=== PATIENT | male | born 1990 | race Caucasian/White ===

== ENCOUNTER 2017-03-06 06:40 | Day surgery (SDC) | payer BC ==
[2017-03-06] MEDS ORDERED: Sodium Chloride 0.9% 10 ML Syringe FLUSH PRN (06:45)
[2017-03-06] MEDS: Lactated Ringers 1,000 ML IV SCH ×3 (07:24→19:33)
[2017-03-06] MEDS ORDERED: Succinylcholine/Normal Saline 200 MG/10 ML Syringe IV ONE (08:00)
[2017-03-06] MEDS ORDERED: Famotidine/Normal Saline 20 MG/50 ML BAG IV ONE (08:00)
[2017-03-06] MEDS ORDERED: Sugammadex Sodium 200 MG/2 ML VIAL IV ONE (08:00)
[2017-03-06] MEDS ORDERED: cefOXitin 2 GM Vial IV ONE (08:00)
[2017-03-06] MEDS ORDERED: Dexamethasone 4 MG/ML 5 ML MDV IVPUSH ONE (08:00)
[2017-03-06] MEDS ORDERED: HYDROmorphone 2 MG/ML SDV IV ONE (08:00)
[2017-03-06] MEDS ORDERED: Citric Acid/Sodium Citrate Solution 30 ML Cup PO ONE (08:00)
[2017-03-06] MEDS ORDERED: Ketorolac 30 MG/ML SDV IVPUSH ONE (08:00)
[2017-03-06] MEDS ORDERED: Scopolamine 1.5 MG Transdermal Patch TOP ONE (08:00)
[2017-03-06] MEDS ORDERED: Ondansetron 4 MG/2 ML SDV IVPUSH ONE (08:00)
[2017-03-06] MEDS ORDERED: Propofol 200 MG/20 ML SDV IV ONE (08:00)
[2017-03-06] MEDS ORDERED: Midazolam 1 MG/ML 2 ML SDV IV ONE (08:00)
[2017-03-06] MEDS ORDERED: cefOXitin 2 GM in Sodium Chloride 0.9% 100 ML IV ONE (08:00)
[2017-03-06] MEDS ORDERED: Lactated Ringers 1,000 ML IV ONE (08:00)
[2017-03-06] MEDS ORDERED: Rocuronium 100 MG/10 ML MDV IV ONE (08:00)
[2017-03-06] MEDS ORDERED: fentaNYL 100 MCG/2 ML SDV IV ONE (08:00)
[2017-03-06] MEDS ORDERED: diphenhydrAMINE 50 MG/ML SDV IV ONE (08:00)
--- NOTE | 2017-03-06 08:17 | PCM.HPR ---
H & P Addendum review - H & P Addendum Review Date of Original H & P: 02/13/17 Date Reviewed: 03/06/17 Time Reviewed: 08:00 Patient was Examined: No Changes
--- NOTE | 2017-03-06 10:35 | PCM.OPNOTE ---
- General Post-Op/Procedure Note Date of Surgery/Procedure: 03/06/17 Operative Procedure(s): Lap Ann Marie Pre Op Diagnosis: GERD Post-Op Diagnosis: Same Anesthesia Technique: General ET Tube Primary Surgeon: Clay Benavidez Anesthesia Provider: Jeff Berry EBL in mLs: 10 Complications: None Condition: Good
[2017-03-06] MEDS ORDERED: Albuterol 0.083% 2.5 MG/3 ML Neb Soln NEB PRN (10:44)
[2017-03-06] MEDS ORDERED: HYDROmorphone 2 MG/ML SDV IV PRN (10:44)
[2017-03-06] MEDS ORDERED: fentaNYL 100 MCG/2 ML SDV IVPUSH PRN (10:44)
[2017-03-06] MEDS ORDERED: Naloxone 0.4 MG/ML SDV IVPUSH PRN (10:44)
[2017-03-06] MEDS ORDERED: HYDROmorphone 2 MG/ML SDV IVPUSH PRN (10:44)
[2017-03-06] MEDS ORDERED: Ondansetron 4 MG/2 ML SDV IVPUSH PRN (10:44)
[2017-03-06] MEDS ORDERED: Promethazine 25 MG/ML SDV IM PRN (10:44)
[2017-03-06] MEDS ORDERED: Lactated Ringers 1,000 ML IV SCH (10:45)
[2017-03-06] MEDS: Morphine 2 MG/ML Syringe IVPUSH PRN ×5 (11:01→18:23)
[2017-03-06] MEDS ORDERED: Nicotine 21 MG/24 Hr Patch TRDERM SCH (12:00)
[2017-03-06] MEDS ORDERED: HYDROmorphone 2 MG/ML SDV IVPUSH ONE (12:36)
[2017-03-06] MEDS ORDERED: Ketorolac 30 MG/ML SDV IVPUSH PRN (17:30)
--- NOTE | 2017-03-06 17:49 | OR ---
DATE OF OPERATION: 03/06/2017 SURGEON: Clay Benavidez MD PREOPERATIVE DIAGNOSIS: Gastroesophageal reflux disease. POSTOPERATIVE DIAGNOSIS: Gastroesophageal reflux disease. PROCEDURE PERFORMED: Laparoscopic Ann Marie Fundoplication. ANESTHESIA: General. YACHT HAND: Dave Quintana MD. DESCRIPTION OF PROCEDURE: The patient was brought to the operating room, where general endotracheal anesthesia was administered. He was placed in stirrups after Flowtrons were applied. The abdomen was clipped, prepped with ChloraPrep, and draped sterilely. An infraumbilical incision was made and extended into the peritoneal cavity without difficulty. The Iris cannulator was introduced and pneumoperitoneum obtained. The patient was placed in reverse Trendelenburg position. Two 5-mm epigastric working ports were placed. Two additional 5-mm ports were placed in the left and right lateral clavicular line. The liver retractor was placed through the right lateral port site and the left lobe of the liver suspended. The hepatogastric ligament was identified and divided using the LigaSure. Dissection was continued along between the right pari and esophagus easily these 2 structures and continuing the dissection posteriorly. Both the right and left pari were identified. Vagus nerve was kept posteriorly and protected from injury. Dissection then continued along the anterior esophagus onto the left side attachments to the fundus and the splenic capsule. The fundus was then cleared by the omentum using the LigaSure. This was continued posteriorly until the remaining attachments to the spleen were with the LigaSure and the esophagus the rest of the way from the left pari. The angled grasper was then placed behind the esophagus and brought out through the left side. A half- inch [place] drain was grasped and used to retract the esophagus anteriorly such that the remaining connective tissue was divided with the LigaSure and allowing an ample opening to pull the fundus through. Some further work was done with the fundus further inferiorly and posteriorly to allow mobility for a tension- free wrap. The bougie was inflated to 56-[place]. The right and left pari were identified and felt 2 reapproximating sutures would be appropriate. The bougie was then deflated, and 2-0 polyester used to reapproximate the right and left pari and secured with a tie-knot. The angled grasper was then brought behind the esophagus and the fundus grasped and brought to the right side. There appeared to be ample mobile fundus to allow a floppy wrap. The bougie was re-inflated, and the wrap started superiorly by grasping the left side of the fundus, anterior esophagus, and right side of the fundus. This was secured with a tie- knot. Two more similar sutures were done inferiorly to allow a wrap with only some minimal tension remaining at the inferior one. This still allowed an instrument to easily pass between the wrap and the esophagus. The bougie was then deflated and withdrawn. The surgical site remained hemostatic. Ports were removed under direct vision and remained hemostatic. Umbilical fascia was closed with [id number] #0 Vicryl, skin was closed with #4-0 Vicryl subcuticular sutures, benzoin and Steri-Strips were placed, and Band-Aids applied. The patient tolerated the procedure well. Estimated blood loss was 10 mL. He returned to postanesthesia in stable condition. /[id number] MEMO/MADAI MTDDebora
[2017-03-06] MEDS ORDERED: Ketorolac 30 MG/ML SDV ONE ×2 (19:02→19:10)
[2017-03-06] MEDS: Ketorolac 30 MG/ML SDV IVPUSH PRN (19:07)
[2017-03-06] MEDS ORDERED: Lisinopril 5 MG Tab PO SCH (21:00)
[2017-03-06] MEDS: Acetaminophen/HYDROcodone 325-5 MG Tab PO PRN (21:12)
[2017-03-07] MEDS: Ketorolac 30 MG/ML SDV IVPUSH PRN ×2 (00:44→09:00)
[2017-03-07] MEDS: Acetaminophen/HYDROcodone 325-5 MG Tab PO PRN ×3 (01:26→10:25)
[2017-03-07] MEDS: Lactated Ringers 1,000 ML IV SCH ×2 (03:41→03:42)
[2017-03-07] MEDS ORDERED: Hydrochlorothiazide 25 MG Tab PO SCH (09:00)
[2017-03-07 09:14] VITALS: BP 119/75
--- NOTE | 2017-03-07 10:03 | PCM.SURGPN ---
- General Info Date of Service: 03/07/17 POD#: 1 Functional Status: Reports: Pain Controlled, Tolerating Diet, Ambulating, Urinating - Review of Systems General: Reports: No Symptoms Cardiovascular: Reports: No Symptoms Gastrointestinal: Reports: No Symptoms, Abdominal Pain (mild incisional) - Patient Data Vitals - Most Recent: Last Vital Signs Temp 97.8 F 03/07/17 08:00 Pulse 65 03/07/17 08:00 Resp 16 03/07/17 08:00 BP 119/75 03/07/17 08:00 Pulse Ox 95 03/07/17 08:00 Weight - Most Recent: 101.605 kg I&O - Last 24 Hours: Intake & Output 03/06/17 03/07/17 03/07/17 22:59 06:59 14:59 Intake Total 350 715 Output Total 500 Balance 350 215 Med Orders - Current: Current Medications Hydrocodone Bitart/Acetaminophen ([place] 325-5 Mg) 1 tab PO Q4H PRN PRN Reason: Pain (moderate 4-6) Last Admin: 03/07/17 06:19 Dose: 1 tab Hydrochlorothiazide (Hydrochlorothiazide) 25 mg PO DAILY [facility] Last Admin: 03/07/17 08:34 Dose: 25 mg Lactated Ringer's (Ringers, Lactated) 1,000 mls @ 125 mls/hr IV ASDIRECTED [facility] Last Admin: 03/07/17 03:42 Dose: 125 mls/hr Ketorolac Tromethamine (Toradol) 30 mg IVPUSH Q6H PRN PRN Reason: Pain Stop: 03/11/17 17:30 Last Admin: 03/07/17 09:00 Dose: 30 mg Lisinopril (Prinivil) 5 mg PO BEDTIME [facility] Last Admin: 03/06/17 21:11 Dose: 5 mg Morphine Sulfate (Morphine) 2 mg IVPUSH Q1H PRN PRN Reason: Pain (severe 7-10) Last Admin: 03/06/17 18:23 Dose: 2 mg Nicotine (Habitrol) 21 mg TRDERM Q24H [facility] Last Admin: 03/06/17 11:52 Dose: 21 mg Sodium Chloride (Saline Flush) 10 ml FLUSH ASDIRECTED PRN PRN Reason: Keep Vein Open Discontinued Medications Albuterol (Proventil Neb Soln) 2.5 mg NEB ONETIME PRN PRN Reason: Wheezing Cefoxitin Sodium (Mefoxin) 2 gm IV ONETIME ONE Stop: 03/06/17 08:01 Last Admin: 03/06/17 07:25 Dose: 2 gm Fentanyl (Sublimaze) 50 mcg IVPUSH Q5M PRN PRN Reason: Pain (severe 7-10) Hydromorphone HCl (Dilaudid) 0.5 mg IVPUSH Q10M PRN PRN Reason: Pain (moderate 4-6) Hydromorphone HCl (Dilaudid) 0.5 mg IV Q10M PRN PRN Reason: Pain (severe 7-10) Hydromorphone HCl (Dilaudid) 2 mg IVPUSH ONETIME ONE Stop: 03/06/17 12:37 Last Admin: 03/06/17 13:14 Dose: 2 mg Lactated Ringer's (Ringers, Lactated) 1,000 mls @ 125 mls/hr IV ASDIRECTED [facility] Last Infusion: 03/06/17 15:24 Dose: Infused Lactated Ringer's (Ringers, Lactated) 1,000 mls @ 0 mls/hr IV ASDIRECTED [facility] PRN Reason: KVO Ketorolac Tromethamine (Toradol) 30 mg IVPUSH Q6H PRN PRN Reason: Pain Stop: 03/11/17 17:30 Ketorolac Tromethamine (Toradol) Confirm Administered Dose 30 mg .ROUTE .STK- MED ONE Stop: 03/06/17 19:03 Last Admin: 03/06/17 19:14 Dose: Not Given Ketorolac Tromethamine (Toradol) Confirm Administered Dose 30 mg .ROUTE .STK- MED ONE Stop: 03/06/17 19:11 Last Admin: 03/06/17 19:29 Dose: Not Given Naloxone HCl (Narcan) 0.2 mg IVPUSH Q1M PRN PRN Reason: Respiratory Depression Ondansetron HCl (Zofran) 4 mg IVPUSH ONETIME PRN PRN Reason: Nausea/Vomiting Promethazine HCl (Phenergan) 12.5 mg IM Q4H PRN PRN Reason: Nausea/Vomiting - Exam Wound/Incisions: Healing Well, Dressing Dry and Intact GI/Abdominal Exam: Soft, Non-Tender - Problem List Review Problem List Initiated/Reviewed/Updated: Yes - My Orders Last 24 Hours: Active Orders 24 hr Category Date Time Status Communication Order [RC] ASDIRECTED Care 03/06/17 10:44 Active Cooling Warming Measures [RC] ASDIRECTED Care 03/06/17 10:44 Active Notify Provider [RC] PRN Care 03/06/17 10:44 Active Oxygen Therapy [RC] PRN Care 03/06/17 10:37 Active RT Incentive Spirometry [RC] Q2HWA Care 03/06/17 10:37 Active Up With Assistance [RC] ASDIRECTED Care 03/06/17 10:37 Active Vital Signs [RC] 08,12,16,20,00,04 Care 03/06/17 10:37 Active Full Liquid Diet [DIET] Diet 03/07/17 Breakfast Ordered Acetaminophen/HYDROcodone [[place] 325-5 MG] Med 03/06/17 10:37 Active 1 tab PO Q4H PRN Hydrochlorothiazide Med 03/07/17 09:00 Active 25 mg PO DAILY Ketorolac [Toradol] Med 03/06/17 18:13 Active 30 mg IVPUSH Q6H PRN Lactated Ringers [Ringers, Lactated] 1,000 ml Med 03/06/17 10:45 Active IV ASDIRECTED Lisinopril [Prinivil] Med 03/06/17 21:00 Active 5 mg PO BEDTIME Morphine Med 03/06/17 10:37 Active 2 mg IVPUSH Q1H PRN Nicotine [Habitrol] Med 03/06/17 12:00 Active 21 mg TRDERM Q24H Patient May [OM.PC] Click to Edit Oth 03/06/17 10:44 Ordered Medication Orders Hydrocodone Bitart/Acetaminophen ([place] 325-5 Mg) 1 tab PO Q4H PRN PRN Reason: Pain (moderate 4-6) Last Admin: 03/07/17 06:19 Dose: 1 tab Admin: 03/07/17 01:26 Dose: 1 tab Admin: 03/06/17 21:12 Dose: 1 tab Hydrochlorothiazide (Hydrochlorothiazide) 25 mg PO DAILY [facility] Last Admin: 03/07/17 08:34 Dose: 25 mg Lactated Ringer's (Ringers, Lactated) 1,000 mls @ 125 mls/hr IV ASDIRECTED [facility] Last Admin: 03/07/17 03:42 Dose: 125 mls/hr Infusion: 03/07/17 03:33 Dose: 125 mls/hr Admin: 03/06/17 19:33 Dose: 125 mls/hr Infusion: 03/06/17 19:19 Dose: 125 mls/hr Admin: 03/06/17 11:19 Dose: 125 mls/hr Ketorolac Tromethamine (Toradol) 30 mg IVPUSH Q6H PRN PRN Reason: Pain Stop: 03/11/17 17:30 Last Admin: 03/07/17 09:00 Dose: 30 mg Admin: 03/07/17 00:44 Dose: 30 mg Admin: 03/06/17 19:07 Dose: 30 mg Lisinopril (Prinivil) 5 mg PO BEDTIME [facility] Last Admin: 03/06/17 21:11 Dose: 5 mg Morphine Sulfate (Morphine) 2 mg IVPUSH Q1H PRN PRN Reason: Pain (severe 7-10) Last Admin: 03/06/17 18:23 Dose: 2 mg Admin: 03/06/17 17:19 Dose: 2 mg Admin: 03/06/17 16:06 Dose: 2 mg Admin: 03/06/17 12:06 Dose: 2 mg Admin: 03/06/17 11:01 Dose: 2 mg Nicotine (Habitrol) 21 mg TRDERM Q24H [facility] Last Admin: 03/06/17 11:52 Dose: 21 mg Sodium Chloride (Saline Flush) 10 ml FLUSH ASDIRECTED PRN PRN Reason: Keep Vein Open - Assessment Assessment (Free Text/Narrative):: Doing well - Plan Plan (Free Text/Narrative):: Discharge to home
== END 2017-03-07 11:05 | disposition home or self-care (01) ==
LOC: FB.SDS 06:40 → FB.MS 11:25 → FB.SDS 03-07 11:05
PROVIDERS: ATTEND Surgery
DX: K21.9 Gastro-esophageal reflux disease without esophagitis (principal); Z88.8 Allergy status to other drugs, medicaments and biological substances
CPT/HCPCS: 43280; A9270; C9399; J0694; J1100; J1170; J1200; J1885; J2250; J2270; J2405; J2704; J3010; J7120

== ENCOUNTER 2021-11-10 23:21 | Emergency (ER) | payer BC ==
[2021-11-10] MEDS ORDERED: EPINEPHrine 1 MG/ML SDV SUBCUT ONE (23:27)
[2021-11-10] MEDS ORDERED: methylPREDNISolone Sodium Succinate 125 MG/2 ML SDV IVPUSH ONE (23:28)
[2021-11-10] MEDS ORDERED: Famotidine 20 MG/2 ML SDV IVPUSH ONE (23:28)
[2021-11-10] MEDS ORDERED: Loratadine 10 MG Tab PO ONE (23:29)
[2021-11-10] MEDS ORDERED: diphenhydrAMINE 50 MG/ML SDV IVPUSH ONE (23:29)
[2021-11-10 23:50] LABS: ESTIMATED GFR 91 mL/min (>60)
[2021-11-11 04:48] VITALS: BP 135/90; PULSE 124
== END 2021-11-11 01:10 | disposition home or self-care (01) ==
LOC: FB.ED 23:21
DX: T63.441A Toxic effect of venom of bees, accidental (unintentional), initial encounter (principal); R00.0 Tachycardia, unspecified; R74.01 Elevation of levels of liver transaminase levels; D75.89 Other specified diseases of blood and blood-forming organs; L50.9 Urticaria, unspecified; Z88.8 Allergy status to other drugs, medicaments and biological substances; Z79.899 Other long term (current) drug therapy; Z90.49 Acquired absence of other specified parts of digestive tract
CPT/HCPCS: 36415; 80053; 85025; 96372; 96374; 96375; 99282; A9270; J0171; J1200; J2930; J3490

== ENCOUNTER 2023-03-29 12:15 | Emergency (ER) | payer BC ==
[2023-03-29 13:19] LABS: BLOOD UREA NITROGEN,BUN 19 mg/dL (7-18); BUN/CREATININE RATIO 15.8 (9-20); CARBON DIOXIDE,CO2 20 mmol/L (21-32); CHLORIDE,CL 100 mmol/L (100-110); CREATININE 1.2 mg/dL (0.70-1.30); ESTIMATED GFR 82 mL/min (>60); GLUCOSE RANDOM 105 mg/dL (80-116); POTASSIUM,K 3.6 mmol/L (3.5-5.3); SODIUM,NA 137 mmol/L (135-145)
[2023-03-29] MEDS: Nitroglycerin 0.4 MG Tab.SL SL ONE (13:19)
[2023-03-29] MEDS: Aspirin 81 MG Tab.Chew PO STA (13:19)
[2023-03-29 13:25] LABS: A/G RATIO 1.1; ALANINE AMINOTRANSFERASE,ALT 36 U/L (12-36); ALKALINE PHOSPHATASE 96 IU/L (56-112); ASPARTATE AMNIOTRANSFERASE,AST 36 IU/L (5-25); BILIRUBIN TOTAL 0.9 mg/dL (0.1-1.3); PROTEIN TOTAL,TP 7.5 g/dL (6.0-8.0)
[2023-03-29 13:27] LABS: INR 0.96 (1.00-1.24); PTT,PARTIAL THROMBOPLSTIN TIME 24.4 SECONDS (24.4-33.2)
[2023-03-29 13:32] LABS: TROPONIN I 7.5 pg/mL (4.0-60.3)
[2023-03-29 13:34] LABS: BASOPHILS PERCENT AUTO 0.6 % (0.3-3.8); EOSINOPHILS PERCENT AUTO 0.7 % (0.1-6.8); HEMATOCRIT 44.8 % (38.3-50.1); HEMOGLOBIN 15.9 g/dL (12.9-17.7); LYMPHOCYTES ABSOLUTE AUTO 1.2 x10-3/uL (0.5-4.5); MEAN CORPUSCULAR HEMOGLOBIN 36.2 pg (27.0-33.3); MEAN CORPUSCULAR HGB CONC 35.4 g/dL (28.7-35.3); MEAN PLATELET VOLUME 7.8 fL (6.7-11.0); MONOCYTES ABSOLUTE AUTO 0.7 x10-3/uL (0.0-1.2); MONOCYTES PERCENT AUTO 10.7 % (5.5-15.2); NEUTROPHILS ABSOLUTE AUTO 4.2 x10-3/uL (1.7-6.9); PLATELET COUNT,PLT 270 x10(3)uL (117-477); RED BLOOD CELL COUNT 4.39 x10(6)uL (3.90-5.90); RED CELL DISTRIBUTION WIDTH 14.1 % (12.4-15.0); WHITE BLOOD CELL COUNT,WBC 6.1 x10-3/uL (3.2-10.1)
[2023-03-29 13:39] LABS: MEAN CORPUSCULAR VOLUME 102.3 fL (80.8-98.7)
[2023-03-29] MEDS: Ketorolac 30 MG/ML SDV IVPUSH ONE (13:57)
[2023-03-29] MEDS: tiZANidine 4 MG Tab PO SCH (13:57)
[2023-03-29] MEDS: Sodium Chloride 0.9% 10 ML Syringe FLUSH PRN (14:03)
[2023-03-29 14:31] VITALS: BP 158/109; PULSE 108
== END 2023-03-29 14:20 | disposition home or self-care (01) ==
LOC: FB.ED 12:15
DX: R07.9 Chest pain, unspecified (principal); I10 Essential (primary) hypertension; M48.02 Spinal stenosis, cervical region; Z88.8 Allergy status to other drugs, medicaments and biological substances; Z79.899 Other long term (current) drug therapy; Z90.49 Acquired absence of other specified parts of digestive tract
CPT/HCPCS: 36415; 71045; 80053; 83880; 84484; 85025; 85610; 85730; 93005; 93010; 96374; 99284; 99285-25; A9270-GY; J1885; J3490

== ENCOUNTER 2024-03-11 14:53 | Emergency (ER) | payer BC ==
[2024-03-11] MEDS: HYDROmorphone 2 MG/ML SDV IVPUSH ONE ×3 (15:24→17:39)
[2024-03-11] MEDS: Ondansetron 4 MG/2 ML SDV IVPUSH ONE (15:24)
[2024-03-11] MEDS: Sodium Chloride 0.9% 1,000 ML IV ONE ×2 (15:30→17:05)
[2024-03-11] MEDS: Iopamidol 755 Mg/ML 100 ML Bottle IV SCH (15:51)
[2024-03-11 15:57] LABS: A/G RATIO 0.8; ALANINE AMINOTRANSFERASE,ALT 88 U/L (12-36); ALBUMIN 3.4 g/dL (3.5-5.2); ALKALINE PHOSPHATASE 183 IU/L (56-112); ASPARTATE AMNIOTRANSFERASE,AST 79 IU/L (5-25); BILIRUBIN TOTAL 2.3 mg/dL (0.1-1.3); BLOOD UREA NITROGEN,BUN 11 mg/dL (7-18); CALCIUM 9.4 mg/dL (8.6-10.2); CARBON DIOXIDE,CO2 22 mmol/L (21-32); CHLORIDE,CL 94 mmol/L (100-110); CREATININE 1.1 mg/dL (0.70-1.30); EST CRCL DRUG DOSING (CG) 116.17 mL/min; ESTIMATED GFR 90 mL/min (>60); GLUCOSE RANDOM 140 mg/dL (80-116); PROTEIN TOTAL,TP 7.8 g/dL (6.0-8.0); SODIUM,NA 132 mmol/L (135-145)
[2024-03-11 16:02] LABS: POTASSIUM,K 2.8 mmol/L (3.5-5.3)
[2024-03-11 16:18] LABS: HEMATOCRIT 46.5 % (38.3-50.1); HEMOGLOBIN 16.6 g/dL (12.9-17.7); MEAN CORPUSCULAR HEMOGLOBIN 37.8 pg (27.0-33.3); MEAN CORPUSCULAR HGB CONC 35.6 g/dL (28.7-35.3); MEAN CORPUSCULAR VOLUME 106.2 fL (80.8-98.7); PLATELET COUNT,PLT 230 x10(3)uL (117-477); RED BLOOD CELL COUNT 4.38 x10(6)uL (3.90-5.90); RED CELL DISTRIBUTION WIDTH 14.9 % (12.4-15.0); WHITE BLOOD CELL COUNT,WBC 18.9 x10-3/uL (3.2-10.1)
[2024-03-11 16:20] LABS: BAND PERCENT MAN 4 % (0-6); LYMPHOCYTES PERCENT MAN 9 % (13-37); MONOCYTES PERCENT MAN 7 % (4-12); SEG NEUTROPHILS PERCENT MAN 80 % (46-82)
[2024-03-11] MEDS: Potassium Chloride 20 MEQ in Premix Bag 1 BAG IV ONE (16:46)
[2024-03-11 17:53] VITALS: BP 117/86; PULSE 142
== END 2024-03-11 18:12 ==
LOC: FB.ED 14:53
DX: K85.90 Acute pancreatitis without necrosis or infection, unspecified (principal); I10 Essential (primary) hypertension; Z90.49 Acquired absence of other specified parts of digestive tract; Z88.8 Allergy status to other drugs, medicaments and biological substances; Z79.52 Long term (current) use of systemic steroids; Z79.899 Other long term (current) drug therapy
CPT/HCPCS: 36415; 74177; 80053; 83605; 83690; 85025; 87040; 96361; 96365; 96375; 96376; 99285; J1171; J2405; J3480; J7030; Q9967

== ENCOUNTER 2024-09-06 05:11 | Inpatient (IN) | payer BC ==
[2024-09-06] MEDS: HYDROmorphone 2 MG/ML SDV IVPUSH ONE (05:29)
[2024-09-06] MEDS: Ondansetron 4 MG/2 ML SDV IVPUSH ONE (05:29)
[2024-09-06 05:43] LABS: MEAN PLATELET VOLUME 8.0 fL (6.7-11.0); PLATELET COUNT,PLT 281 x10(3)uL (117-477); RED BLOOD CELL COUNT 5.13 x10(6)uL (3.90-5.90); RED CELL DISTRIBUTION WIDTH 15.7 % (12.4-15.0); WHITE BLOOD CELL COUNT,WBC 15.7 x10-3/uL (3.2-10.1)
[2024-09-06 05:57] LABS: BLOOD UREA NITROGEN,BUN 6 mg/dL (7-18); CARBON DIOXIDE,CO2 22 mmol/L (21-32); CHLORIDE,CL 101 mmol/L (100-110); CREATININE 0.9 mg/dL (0.70-1.30); ESTIMATED GFR 114 mL/min (>60); GLUCOSE RANDOM 144 mg/dL (80-116); POTASSIUM,K 3.0 mmol/L (3.5-5.3); SODIUM,NA 137 mmol/L (135-145)
[2024-09-06 06:03] LABS: A/G RATIO 1.1; ALANINE AMINOTRANSFERASE,ALT 108 U/L (12-36); ASPARTATE AMNIOTRANSFERASE,AST 98 IU/L (5-25); BILIRUBIN TOTAL 0.9 mg/dL (0.1-1.3); PROTEIN TOTAL,TP 8.0 g/dL (6.0-8.0)
[2024-09-06] MEDS: Iopamidol 755 Mg/ML 100 ML Bottle IV ONE (06:03)
[2024-09-06 06:08] LABS: LYMPHOCYTES PERCENT MAN 4 % (13-37); MONOCYTES PERCENT MAN 15 % (4-12); SEG NEUTROPHILS PERCENT MAN 81 % (46-82)
[2024-09-06] MEDS: fentaNYL 100 MCG/2 ML SDV IVPUSH ONE (06:13)
[2024-09-06] MEDS ORDERED: Ondansetron 4 MG/2 ML SDV IV PRN (06:40)
[2024-09-06 07:00] LABS: CHOLESTEROL HDL 34.0 mg/dL (40-75); CHOLESTEROL LDL DIRECT 81.0 mg/dL (60-130); CHOLESTEROL TOTAL 209.0 mg/dL (50-200)
[2024-09-06] MEDS: fentaNYL 100 MCG/2 ML SDV IVPUSH PRN (07:28)
[2024-09-06] MEDS ORDERED: Naloxone 0.4 MG/ML SDV IVPUSH PRN (08:07)
[2024-09-06] MEDS: HYDROmorphone 2 MG/ML SDV IVPUSH PRN ×3 (08:14→17:43)
[2024-09-06] MEDS: Lactated Ringers 1,000 ML IV SCH (09:06)
[2024-09-06] MEDS ORDERED: LORazepam 2 MG/ML SDV IV PRN (10:18)
[2024-09-06] MEDS: Potassium Chloride 20 MEQ in Premix Bag 1 BAG IV SCH (10:23)
[2024-09-06] MEDS: LORazepam 2 MG/ML SDV IV PRN (11:09)
[2024-09-06] MEDS: Magnesium Sulfate 2 GM/50 mL 2 GM in Premix Bag 1 BAG IV ONE (11:10)
[2024-09-06 11:49] LABS: GLUCOSE,URINE NORMAL (NORMAL); OCCULT BLOOD,URINE LARGE (NEGATIVE)
[2024-09-06 11:51] LABS: APPEARANCE,URINE CLEAR (CLEAR)
[2024-09-06 11:56] LABS: SQUAMOUS EPITHELIAL CELLS,UR RARE (NS,R,O)
[2024-09-06 11:58] LABS: AMPHETAMINES SCREEN, URINE NEGATIVE (NEGATIVE); BUPRENORPHINE SCREEN,URINE NEGATIVE (NEGATIVE); METHADONE SCREEN, URINE NEGATIVE (NEGATIVE); METHAMPHETAMINE SCREEN, URINE NEGATIVE (NEGATIVE); OXYCODONE SCREEN,URINE NEGATIVE (NEGATIVE)
[2024-09-06] MEDS: Sodium Chloride 0.9% 10 ML Syringe FLUSH PRN (12:59)
[2024-09-06 16:12] VITALS: BP 169/109; PULSE 140
[2024-09-06 17:22] LABS: POTASSIUM,K 4.1 mmol/L (3.5-5.3)
[2024-09-07] MEDS ORDERED: Thiamine 200 MG/2 ML MDV IV SCH (09:00)
== END 2024-09-06 18:00 | DRG 282 ==
LOC: FB.ED 05:11 → FB.MS 06:40
PROVIDERS: ADMIT Family Medicine; ATTEND Internal Medicine
DX: K85.20 Alcohol induced acute pancreatitis without necrosis or infection (principal); E83.42 Hypomagnesemia; H54.7 Unspecified visual loss; I10 Essential (primary) hypertension; K21.9 Gastro-esophageal reflux disease without esophagitis; F41.9 Anxiety disorder, unspecified; F17.200 Nicotine dependence, unspecified, uncomplicated; E87.6 Hypokalemia; F10.139 Alcohol abuse with withdrawal, unspecified; R74.01 Elevation of levels of liver transaminase levels; E78.1 Pure hyperglyceridemia; Z91.030 Bee allergy status; Z88.8 Allergy status to other drugs, medicaments and biological substances; Z88.5 Allergy status to narcotic agent; Z90.89 Acquired absence of other organs; Z90.49 Acquired absence of other specified parts of digestive tract; Z79.899 Other long term (current) drug therapy
CPT/HCPCS: 36415; 51701; 74177; 80053; 80061; 80307; 81001; 82150; 83690; 83735; 84132; 85025; 87040; 96374; 96375; 99236; 99285-25; J1171; J1650; J2060; J2405; J2470; J3010; J3475; J3480; J7030; J7120; Q9967